=== PATIENT | male | born 1955 | race African-American/Black ===

== ENCOUNTER 2019-06-27 08:27 | Inpatient (IN) | payer OTHER ==
--- NOTE | 2019-06-27 08:47 | BHS.RME ---
Substance Use & Tx History - Substance Use History Opiates (Heroin) Substance amount: 6 bags Frequency of use: Daily Substance route: Inhalation (ex: sniffing or snorting) Date of Last Use: 06/26/19 Cocaine (Powder) Substance amount: 6 bags Frequency of use: Daily Substance route: Inhalation (ex: sniffing or snorting) Date of Last Use: 06/26/19 Physical/Psych/Mental Status - Behavior General Behavior: Increased activity (restlessness, agitation) - Cooperativeness Cooperativeness: Cooperative - Thinking Thought Processes: Tight, Logical, Goal Directed Thought content: Future oriented - Physical Health Problems Is patient presently having any pain?: No Does patient presently have any injuries (include location): No Does patient currently have a fever: No Is patient : No COWS - Scale Resting Pulse: 1= [place] 81-100 Sweatin= No chills or Flushing Restless Observation: 3= Extraneous Movement Pupil Size: 1= Pupils >than Normal Bone or Joint Aches: 2= Severe Diffuse Aches Runny Nose/ Eye Tearin= Nasal Congestion GI Upset > 30mins: 1= Stomach Cramp Tremor Observation: 1= Tremor [place], Not Seen Yawning Observation: 1= 1-2x During Session Anxiety or Irritability: 2=Irritable/Anxious Goose Flesh Skin: 0=Smooth Skin COWS Score: 13
[2019-06-27 09:22] VITALS: BMI 25.3
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
[2019-06-27] MEDS ORDERED: MENTHOL/PHENOL 1 EACH UD MM PRN (09:57)
[2019-06-27] MEDS ORDERED: MAGNESIUM CITRATE 300 ML BOTTLE PO PRN (09:57)
[2019-06-27] MEDS ORDERED: METHOCARBAMOL 500 MG TABLET PO PRN (09:57)
[2019-06-27] MEDS ORDERED: MAG HYDROX/AL HYDROX/SIMETH 30 ML UNIT-DOSE CUP PO PRN (09:57)
[2019-06-27] MEDS ORDERED: IBUPROFEN 400 MG TABLET (FP) PO PRN (09:57)
[2019-06-27] MEDS ORDERED: ACETAMINOPHEN 325 MG TABLET (FP) PO PRN ×2 (09:57)
[2019-06-27] MEDS ORDERED: MAGNESIUM HYDROX 2400MG/30ML ORAL SUSPENSION 30 ML CUP PO PRN (09:57)
[2019-06-27] MEDS ORDERED: NICOTINE POLACRILEX 2 MG GUM BUC PRN (09:57)
[2019-06-27] MEDS ORDERED: cloNIDine HCL 0.1 MG TABLET PO PRN (09:57)
[2019-06-27] MEDS ORDERED: METHADONE HCL 10 MG TABLET (FOR DETOX USE ONLY) PO ONE (10:30)
[2019-06-27] MEDS ORDERED: ONDANSETRON *ODT* 4 MG TABLET SL ONE (10:30)
[2019-06-27] MEDS: hydrOXYzine PAMOATE 25 MG CAPSULE (FP) PO SCH ×4 (11:06→22:23)
[2019-06-27] MEDS: PRENATAL VITAMINS W/ FOLIC ACID TABLET (FP) PO SCH (11:07)
[2019-06-27] MEDS: NICOTINE 7 MG/24 HOURS TOPICAL PATCH TD SCH (11:10)
[2019-06-27] MEDS ORDERED: BISMUTH SUBSALICYLATE 262 MG/15 ML BTL PO PRN (12:39)
[2019-06-27 15:27] LABS: HEMATOCRIT 36.4 % (35.4-49); HEMOGLOBIN 12.1 GM/dL (11.7-16.9); MCH 29.8 pg (25.7-33.7); MCHC 33.1 g/dl (32.0-35.9); MEAN PLT VOLUME 8.2 fl (7.5-11.1); PLATELET COUNT 313 K/MM3 (134-434); RBC 4.05 M/mm3 (4.00-5.60); RDW 14.3 % (11.9-15.9); WHITE BLOOD COUNT 7.4 K/mm3 (4.0-10.0)
[2019-06-27 15:55] LABS: ALBUMIN 3.8 g/dl (3.4-5.0); BILIRUBIN,TOTAL 0.3 mg/dL (0.2-1); BLOOD UREA NITROGEN 15.5 mg/dL (7-18); CALCIUM 9.2 mg/dL (8.5-10.1); POTASSIUM 4.4 mmol/L (3.5-5.1); TOT PROT 7.8 g/dl (6.4-8.2)
[2019-06-27] MEDS: MELATONIN 5 MG TABLETS PO SCH (22:23)
[2019-06-27] MEDS: THIAMINE HCL 100 MG TABLET (FP) PO SCH (22:23)
[2019-06-28] MEDS: hydrOXYzine PAMOATE 25 MG CAPSULE (FP) PO SCH ×5 (06:44→22:16)
[2019-06-28] MEDS ORDERED: METHADONE HCL 5 MG TABLET (FOR DETOX USE ONLY) ONE (09:42)
[2019-06-28] MEDS ORDERED: METHADONE HCL 10 MG TABLET (FOR DETOX USE ONLY) ONE (09:42)
[2019-06-28] MEDS ORDERED: METHADONE (DETOX) 20 MG, METHADONE (DETOX) 5 MG PO ONE (10:00)
[2019-06-28] MEDS: PRENATAL VITAMINS W/ FOLIC ACID TABLET (FP) PO SCH (10:53)
[2019-06-28] MEDS: NICOTINE 7 MG/24 HOURS TOPICAL PATCH TD SCH (10:55)
--- NOTE | 2019-06-28 11:08 | PN ---
S COWS - Scale Resting Pulse: 0= [place] 80 or Below Sweatin= No chills or Flushing Restless Observation: 1= Difficult to Sit Still Pupil Size: 1= Pupils >than Normal Bone or Joint Aches: 1= Mild Discomfort Runny Nose/ Eye Tearin= Nasal Congestion GI Upset > 30mins: 1= Stomach Cramp Tremor Observation of Outstretched Hands: 1= Tremor [place], Not Seen Yawning Observation: 1= 1-2x During Session Anxiety or Irritability: 2=Irritable/Anxious Goose Flesh Skin: 0=Smooth Skin COWS Score: 9 S Progress Note (SOAP) Subjective: alert,irritable,anxious,interrupted sleep,pain in the body and back,nausea Objective: 06/28/19 11:06 Vital Signs Temperature 97.5 F L 06/28/19 08:30 Pulse Rate 58 L 06/28/19 08:30 Respiratory Rate 18 06/28/19 08:30 Blood Pressure 154/85 06/28/19 08:30 O2 Sat by Pulse Oximetry (%) 06/28/19 11:06 Laboratory Last Values WBC 7.4 K/mm3 (4.0-10.0) 06/27/19 10:20 RBC 4.05 M/mm3 (4.00-5.60) 06/27/19 10:20 Hgb 12.1 GM/dL (11.7-16.9) 06/27/19 10:20 Hct 36.4 % (35.4-49) 06/27/19 10:20 MCV 90.0 fl (80-96) 06/27/19 10:20 MCH 29.8 pg (25.7-33.7) 06/27/19 10:20 MCHC 33.1 g/dl (32.0-35.9) 06/27/19 10:20 RDW 14.3 % (11.9-15.9) 06/27/19 10:20 Plt Count 313 K/MM3 (134-434) 06/27/19 10:20 MPV 8.2 fl (7.5-11.1) 06/27/19 10:20 Sodium 140 mmol/L (136-145) 06/27/19 10:20 Potassium 4.4 mmol/L (3.5-5.1) 06/27/19 10:20 Chloride 102 mmol/L (98-107) 06/27/19 10:20 Carbon Dioxide 34 mmol/L (21-32) H 06/27/19 10:20 Anion Gap 4 MMOL/L (8-16) L 06/27/19 10:20 BUN 15.5 mg/dL (7-18) 06/27/19 10:20 Creatinine 1.0 mg/dL (0.55-1.3) 06/27/19 10:20 Est GFR (CKD-EPI)AfAm 93.08 06/27/19 10:20 Est GFR (CKD-EPI)NonAf 80.31 06/27/19 10:20 Random Glucose 70 mg/dL (74-106) L 06/27/19 10:20 Calcium 9.2 mg/dL (8.5-10.1) 06/27/19 10:20 Total Bilirubin 0.3 mg/dL (0.2-1) 06/27/19 10:20 AST 22 U/L (15-37) 06/27/19 10:20 ALT 22 U/L (13-61) 06/27/19 10:20 Alkaline Phosphatase 85 U/L (45-117) 06/27/19 10:20 Total Protein 7.8 g/dl (6.4-8.2) 06/27/19 10:20 Albumin 3.8 g/dl (3.4-5.0) 06/27/19 10:20 RPR Titer Nonreactive (NONREACTIVE) 06/27/19 10:20 Assessment: 06/28/19 11:07 withdrawal symptom Plan: continue detox methadone regimen
[2019-06-28] MEDS: THIAMINE HCL 100 MG TABLET (FP) PO SCH (22:15)
[2019-06-28] MEDS: MELATONIN 5 MG TABLETS PO SCH (22:16)
[2019-06-29] MEDS: hydrOXYzine PAMOATE 25 MG CAPSULE (FP) PO SCH ×5 (06:48→22:23)
[2019-06-29] MEDS ORDERED: METHADONE HCL 10 MG TABLET (FOR DETOX USE ONLY) PO ONE (10:00)
[2019-06-29] MEDS: PRENATAL VITAMINS W/ FOLIC ACID TABLET (FP) PO SCH (10:11)
[2019-06-29] MEDS: NICOTINE 7 MG/24 HOURS TOPICAL PATCH TD SCH (10:11)
--- NOTE | 2019-06-29 11:52 | PN ---
BHS COWS - Scale Resting Pulse: 0= [place] 80 or Below Sweatin= Chills/Flushing Restless Observation: 1= Difficult to Sit Still Pupil Size: 0= Normal to Room Light Bone or Joint Aches: 1= Mild Discomfort Runny Nose/ Eye Tearin= None GI Upset > 30mins: 0= None Tremor Observation of Outstretched Hands: 0= None Yawning Observation: 1= 1-2x During Session Anxiety or Irritability: 1=Feels Anxious/Irritable Goose Flesh Skin: 0=Smooth Skin COWS Score: 5 BHS Progress Note (SOAP) Subjective: agitation irritable sweats Objective: 06/29/19 11:51 Vital Signs Temperature 97.5 F L 06/29/19 08:45 Pulse Rate 63 06/29/19 08:45 Respiratory Rate 16 06/29/19 08:45 Blood Pressure 139/75 06/29/19 08:45 O2 Sat by Pulse Oximetry (%) Laboratory Tests 06/27/19 06/27/19 06/27/19 10:20 10:20 10:20 WBC 7.4 RBC 4.05 Hgb 12.1 Hct 36.4 MCV 90.0 MCH 29.8 MCHC 33.1 RDW 14.3 Plt Count 313 MPV 8.2 Sodium 140 Potassium 4.4 Chloride 102 Carbon Dioxide 34 H Anion Gap 4 L BUN 15.5 Creatinine 1.0 Est GFR (CKD-EPI)AfAm 93.08 Est GFR (CKD-EPI)NonAf 80.31 Random Glucose 70 L Calcium 9.2 Total Bilirubin 0.3 AST 22 ALT 22 Alkaline Phosphatase 85 Total Protein 7.8 Albumin 3.8 RPR Titer Nonreactive aaox3 ambulating no acute distress Assessment: 06/29/19 11:51 mild withdrawals Plan: continue detox
[2019-06-29] MEDS: THIAMINE HCL 100 MG TABLET (FP) PO SCH (22:22)
[2019-06-29] MEDS: MELATONIN 5 MG TABLETS PO SCH (22:23)
[2019-06-30] MEDS: hydrOXYzine PAMOATE 25 MG CAPSULE (FP) PO SCH ×4 (06:25→22:40)
[2019-06-30] MEDS ORDERED: METHADONE HCL 5 MG TABLET (FOR DETOX USE ONLY) ONE (09:48)
[2019-06-30] MEDS ORDERED: METHADONE HCL 10 MG TABLET (FOR DETOX USE ONLY) ONE (09:49)
[2019-06-30] MEDS ORDERED: METHADONE (DETOX) 10 MG, METHADONE (DETOX) 5 MG PO ONE (10:00)
--- NOTE | 2019-06-30 10:21 | PN ---
S COWS - Scale Resting Pulse: 0= [place] 80 or Below Sweatin= No chills or Flushing Restless Observation: 1= Difficult to Sit Still Pupil Size: 1= Pupils >than Normal Bone or Joint Aches: 1= Mild Discomfort Runny Nose/ Eye Tearin= Nasal Congestion GI Upset > 30mins: 1= Stomach Cramp Tremor Observation of Outstretched Hands: 1= Tremor [place], Not Seen Yawning Observation: 1= 1-2x During Session Anxiety or Irritability: 2=Irritable/Anxious Goose Flesh Skin: 0=Smooth Skin COWS Score: 9 S Progress Note (SOAP) Subjective: alert,irritable,anxious,interrupted sleep,pain in the body,aching pain Objective: 06/30/19 10:20 Vital Signs Temperature 98.0 F 06/30/19 05:30 Pulse Rate 56 L 06/30/19 05:30 Respiratory Rate 18 06/30/19 05:30 Blood Pressure 134/72 06/30/19 05:30 O2 Sat by Pulse Oximetry (%) 06/30/19 10:20 Laboratory Last Values WBC 7.4 K/mm3 (4.0-10.0) 06/27/19 10:20 RBC 4.05 M/mm3 (4.00-5.60) 06/27/19 10:20 Hgb 12.1 GM/dL (11.7-16.9) 06/27/19 10:20 Hct 36.4 % (35.4-49) 06/27/19 10:20 MCV 90.0 fl (80-96) 06/27/19 10:20 MCH 29.8 pg (25.7-33.7) 06/27/19 10:20 MCHC 33.1 g/dl (32.0-35.9) 06/27/19 10:20 RDW 14.3 % (11.9-15.9) 06/27/19 10:20 Plt Count 313 K/MM3 (134-434) 06/27/19 10:20 MPV 8.2 fl (7.5-11.1) 06/27/19 10:20 Sodium 140 mmol/L (136-145) 06/27/19 10:20 Potassium 4.4 mmol/L (3.5-5.1) 06/27/19 10:20 Chloride 102 mmol/L (98-107) 06/27/19 10:20 Carbon Dioxide 34 mmol/L (21-32) H 06/27/19 10:20 Anion Gap 4 MMOL/L (8-16) L 06/27/19 10:20 BUN 15.5 mg/dL (7-18) 06/27/19 10:20 Creatinine 1.0 mg/dL (0.55-1.3) 06/27/19 10:20 Est GFR (CKD-EPI)AfAm 93.08 06/27/19 10:20 Est GFR (CKD-EPI)NonAf 80.31 06/27/19 10:20 Random Glucose 70 mg/dL (74-106) L 06/27/19 10:20 Calcium 9.2 mg/dL (8.5-10.1) 06/27/19 10:20 Total Bilirubin 0.3 mg/dL (0.2-1) 06/27/19 10:20 AST 22 U/L (15-37) 06/27/19 10:20 ALT 22 U/L (13-61) 06/27/19 10:20 Alkaline Phosphatase 85 U/L (45-117) 06/27/19 10:20 Total Protein 7.8 g/dl (6.4-8.2) 06/27/19 10:20 Albumin 3.8 g/dl (3.4-5.0) 06/27/19 10:20 RPR Titer Nonreactive (NONREACTIVE) 06/27/19 10:20 Assessment: 06/30/19 10:20 withdrawal symptom Plan: continue detox methadone regimen
[2019-06-30] MEDS: PRENATAL VITAMINS W/ FOLIC ACID TABLET (FP) PO SCH (10:59)
[2019-06-30] MEDS: NICOTINE 7 MG/24 HOURS TOPICAL PATCH TD SCH (11:00)
[2019-06-30] MEDS: THIAMINE HCL 100 MG TABLET (FP) PO SCH (22:31)
[2019-06-30] MEDS: MELATONIN 5 MG TABLETS PO SCH (22:32)
[2019-07-01] MEDS ORDERED: METHADONE HCL 10 MG TABLET (FOR DETOX USE ONLY) PO ONE (10:00)
[2019-07-01] MEDS: PRENATAL VITAMINS W/ FOLIC ACID TABLET (FP) PO SCH (11:02)
[2019-07-01] MEDS: hydrOXYzine PAMOATE 25 MG CAPSULE (FP) PO SCH ×4 (11:03→22:15)
--- NOTE | 2019-07-01 11:03 | PN ---
[facility] CIWA - CIWA Score Nausea/Vomitin-Mild Nausea/No Vomiting Muscle Tremors: 1-None Visible, but [place] Anxiety: 2 Agitation: 2 Paroxysmal Sweats: No Perspiration Orientation: 0-Oriented Tacttile Disturbances: 1-Very Mild Itch/Numbness Auditory Disturbances: 0-None Visual Disturbances: 0-None Headache: 1-Very Mild CIWA-Ar Total Score: 8 BHS Progress Note (SOAP) Subjective: alert,irritable,anxious,interrupted sleep, Objective: 07/01/19 11:01 Vital Signs Temperature 98.2 F 07/01/19 08:45 Pulse Rate 70 07/01/19 08:45 Respiratory Rate 19 07/01/19 08:45 Blood Pressure 122/68 07/01/19 08:45 O2 Sat by Pulse Oximetry (%) Assessment: 07/01/19 11:02 withdrawalsymptom Plan: continue detox librium regimen,discharge in am
[2019-07-01] MEDS: NICOTINE 7 MG/24 HOURS TOPICAL PATCH TD SCH (15:16)
[2019-07-01] MEDS: THIAMINE HCL 100 MG TABLET (FP) PO SCH (22:15)
[2019-07-01] MEDS: MELATONIN 5 MG TABLETS PO SCH (22:16)
[2019-07-02] MEDS ORDERED: METHADONE HCL 5 MG TABLET (FOR DETOX USE ONLY) PO ONE (06:00)
[2019-07-02] MEDS: hydrOXYzine PAMOATE 25 MG CAPSULE (FP) PO SCH (06:16)
[2019-07-02 06:44] VITALS: BP 131/79; PULSE 63; TEMP 97.4
--- NOTE | 2019-07-02 08:23 | DS ---
[facility] Detox Discharge Summary Admission Date: 06/27/19 Discharge Date: 07/02/19 - History Present History: Cocaine Dependence, Opioid Dependence - Physical Exam Results Vital Signs: Vital Signs Temperature 97.4 F L 07/02/19 05:25 Pulse Rate 63 07/02/19 05:25 Respiratory Rate 18 07/02/19 05:25 Blood Pressure 131/79 07/02/19 05:25 O2 Sat by Pulse Oximetry (%) Pertinent Admission Physical Exam Findings: Vital Signs Temperature 97.4 F L 07/02/19 05:25 Pulse Rate 63 07/02/19 05:25 Respiratory Rate 18 07/02/19 05:25 Blood Pressure 131/79 07/02/19 05:25 O2 Sat by Pulse Oximetry (%) Laboratory Tests 06/27/19 06/27/19 06/27/19 10:20 10:20 10:20 WBC 7.4 RBC 4.05 Hgb 12.1 Hct 36.4 MCV 90.0 MCH 29.8 MCHC 33.1 RDW 14.3 Plt Count 313 MPV 8.2 Sodium 140 Potassium 4.4 Chloride 102 Carbon Dioxide 34 H Anion Gap 4 L BUN 15.5 Creatinine 1.0 Est GFR (CKD-EPI)AfAm 93.08 Est GFR (CKD-EPI)NonAf 80.31 Random Glucose 70 L Calcium 9.2 Total Bilirubin 0.3 AST 22 ALT 22 Alkaline Phosphatase 85 Total Protein 7.8 Albumin 3.8 RPR Titer Nonreactive T.pallidum Ab Interpret 06/27/19 10:20 WBC RBC Hgb Hct MCV MCH MCHC RDW Plt Count MPV Sodium Potassium Chloride Carbon Dioxide Anion Gap BUN Creatinine Est GFR (CKD-EPI)AfAm Est GFR (CKD-EPI)NonAf Random Glucose Calcium Total Bilirubin AST ALT Alkaline Phosphatase Total Protein Albumin RPR Titer T.pallidum Ab Interpret Cancelled aaox3 ambulating no acute distress lungs CTA - Treatment Hospital Course: Detox Protocol Followed, Detoxed Safely, Responded well, Discharged Condition Good, Rehab Referral Accepted - Medication Discharge Medications: Ambulatory Orders NK [No Known Home Medication] 06/27/19 - Diagnosis (1) Opioid dependence with withdrawal Current Visit: Yes Status: Acute (2) Cocaine dependence Current Visit: Yes Status: Chronic Qualifiers: Substance use status: uncomplicated Qualified Code(s): F14.20 - Cocaine dependence, uncomplicated (3) Opioid dependence, uncomplicated Current Visit: Yes Status: Chronic - AMA Did Patient Leave Against Medical Advice: No
== END 2019-07-02 09:08 | disposition home or self-care (01) | DRG 897 ==
LOC: YASAS 08:27 → Y6N 09:59
PROVIDERS: ADMIT Allergy & Immunology; ATTEND Allergy & Immunology
PROC: HZ2ZZZZ Detoxification Services for Substance Abuse Treatment (ICD-10-PCS; principal; 2019-06-27)
DX: F11.23 Opioid dependence with withdrawal (principal); F14.20 Cocaine dependence, uncomplicated; Z87.891 Personal history of nicotine dependence
CPT/HCPCS: 36415; 80053; 85027; 86593

== ENCOUNTER 2020-07-01 06:34 | Inpatient (IN) | payer OTHER ==
[2020-07-01 07:39] VITALS: BMI 28.2
[2020-07-01] MEDS ORDERED: ACETAMINOPHEN 325 MG TABLET (FP) PO PRN ×2 (09:57)
[2020-07-01] MEDS ORDERED: METHADONE HCL 10 MG TABLET (FOR DETOX USE ONLY) PO ONE (09:57)
[2020-07-01] MEDS ORDERED: MAGNESIUM CITRATE 300 ML BOTTLE PO PRN (09:57)
[2020-07-01] MEDS ORDERED: ONDANSETRON *ODT* 4 MG TABLET SL PRN (09:57)
[2020-07-01] MEDS ORDERED: BISMUTH SUBSALICYLATE 262 MG/15 ML BTL PO PRN (09:57)
[2020-07-01] MEDS ORDERED: MAGNESIUM HYDROX 2400MG/30ML ORAL SUSPENSION 30 ML CUP PO PRN (09:57)
[2020-07-01] MEDS ORDERED: MAG HYDROX/AL HYDROX/SIMETH 30 ML UNIT-DOSE CUP PO PRN (09:57)
[2020-07-01] MEDS ORDERED: MENTHOL/PHENOL 1 EACH UD MM PRN (09:57)
[2020-07-01] MEDS: PRENATAL VITAMINS W/ FOLIC ACID TABLET (FP) PO SCH (12:29)
[2020-07-01] MEDS: hydrOXYzine PAMOATE 25 MG CAPSULE (FP) PO SCH ×4 (12:29→22:30)
[2020-07-01] MEDS ORDERED: MASKS NR ONE (12:29)
[2020-07-01] MEDS: cloNIDine HCL 0.1 MG TABLET PO PRN (12:57)
[2020-07-01 14:42] LABS: HEMATOCRIT 34.3 % (35.4-49); HEMOGLOBIN 11.4 GM/dL (11.7-16.9); MCH 29.3 pg (25.7-33.7); MCHC 33.3 g/dl (32.0-35.9); MEAN CELL VOLUME 87.9 fl (80-96); MEAN PLT VOLUME 8.2 fl (7.5-11.1); PLATELET COUNT 252 K/MM3 (134-434); RBC 3.91 M/mm3 (4.00-5.60); RDW 15.1 % (11.9-15.9); WHITE BLOOD COUNT 7.7 K/mm3 (4.0-10.0)
[2020-07-01 15:31] LABS: POTASSIUM 3.8 mmol/L (3.5-5.1)
[2020-07-01 15:33] LABS: CALCIUM 9.2 mg/dL (8.5-10.1)
[2020-07-01 15:34] LABS: ALBUMIN 3.7 g/dl (3.4-5.0); BLOOD UREA NITROGEN 12.6 mg/dL (7-18)
[2020-07-01 15:38] LABS: BILIRUBIN,TOTAL 0.4 mg/dL (0.2-1); TOT PROT 7.6 g/dl (6.4-8.2)
[2020-07-01] MEDS: THIAMINE HCL 100 MG TABLET (FP) PO SCH (22:22)
[2020-07-01] MEDS: MELATONIN 5 MG TABLETS PO SCH (22:22)
[2020-07-02] MEDS: hydrOXYzine PAMOATE 25 MG CAPSULE (FP) PO SCH ×2 (05:38→10:29)
[2020-07-02] MEDS ORDERED: METHADONE HCL 5 MG TABLET (FOR DETOX USE ONLY) ONE (09:20)
[2020-07-02] MEDS ORDERED: METHADONE HCL 10 MG TABLET (FOR DETOX USE ONLY) ONE (09:20)
[2020-07-02] MEDS ORDERED: METHADONE (DETOX) 20 MG, METHADONE (DETOX) 5 MG PO ONE (10:00)
[2020-07-02] MEDS: METHOCARBAMOL 500 MG TABLET PO PRN ×2 (10:29→22:36)
[2020-07-02] MEDS: PRENATAL VITAMINS W/ FOLIC ACID TABLET (FP) PO SCH (10:29)
[2020-07-02] MEDS: IBUPROFEN 400 MG TABLET (FP) PO PRN ×2 (10:31→22:36)
[2020-07-02] MEDS ORDERED: hydrOXYzine PAMOATE 25 MG CAPSULE (FP) PO PRN (12:32)
[2020-07-02] MEDS: LIDOCAINE 5% TOPICAL PATCH TP SCH (13:53)
[2020-07-02] MEDS: THIAMINE HCL 100 MG TABLET (FP) PO SCH (22:38)
[2020-07-02] MEDS: MELATONIN 5 MG TABLETS PO SCH (22:38)
[2020-07-02] MEDS: LIDOCAINE PATCH REMOVAL MC SCH (22:39)
[2020-07-03] MEDS ORDERED: METHADONE HCL 10 MG TABLET (FOR DETOX USE ONLY) PO ONE (10:00)
[2020-07-03] MEDS: PRENATAL VITAMINS W/ FOLIC ACID TABLET (FP) PO SCH (10:20)
[2020-07-03] MEDS: LIDOCAINE 5% TOPICAL PATCH TP SCH (10:21)
[2020-07-03] MEDS: METHOCARBAMOL 500 MG TABLET PO PRN ×2 (10:21→22:11)
[2020-07-03] MEDS: IBUPROFEN 400 MG TABLET (FP) PO PRN ×2 (10:23→22:11)
[2020-07-03] MEDS: LIDOCAINE PATCH REMOVAL MC SCH (22:08)
[2020-07-03] MEDS: cloNIDine HCL 0.1 MG TABLET PO PRN (22:09)
[2020-07-03] MEDS: THIAMINE HCL 100 MG TABLET (FP) PO SCH (22:09)
[2020-07-03] MEDS: MELATONIN 5 MG TABLETS PO SCH (22:09)
[2020-07-04] MEDS ORDERED: METHADONE HCL 10 MG TABLET (FOR DETOX USE ONLY) ONE (09:16)
[2020-07-04] MEDS ORDERED: METHADONE HCL 5 MG TABLET (FOR DETOX USE ONLY) ONE (09:17)
[2020-07-04] MEDS ORDERED: METHADONE (DETOX) 10 MG, METHADONE (DETOX) 5 MG PO ONE (10:00)
[2020-07-04] MEDS: LIDOCAINE 5% TOPICAL PATCH TP SCH (10:32)
[2020-07-04] MEDS: PRENATAL VITAMINS W/ FOLIC ACID TABLET (FP) PO SCH (10:33)
[2020-07-04] MEDS: IBUPROFEN 400 MG TABLET (FP) PO PRN ×2 (10:34→22:07)
[2020-07-04] MEDS: METHOCARBAMOL 500 MG TABLET PO PRN ×2 (10:34→22:07)
[2020-07-04] MEDS: LIDOCAINE PATCH REMOVAL MC SCH (22:04)
[2020-07-04] MEDS: THIAMINE HCL 100 MG TABLET (FP) PO SCH (22:05)
[2020-07-04] MEDS: MELATONIN 5 MG TABLETS PO SCH (22:05)
[2020-07-05] MEDS ORDERED: METHADONE HCL 10 MG TABLET (FOR DETOX USE ONLY) PO ONE (10:00)
[2020-07-05] MEDS: PRENATAL VITAMINS W/ FOLIC ACID TABLET (FP) PO SCH (10:18)
[2020-07-05] MEDS: LIDOCAINE 5% TOPICAL PATCH TP SCH (10:18)
[2020-07-05] MEDS: IBUPROFEN 400 MG TABLET (FP) PO PRN (10:19)
[2020-07-05] MEDS: METHOCARBAMOL 500 MG TABLET PO PRN (10:19)
[2020-07-05] MEDS ORDERED: cloNIDine HCL 0.1 MG TABLET PO ONE (15:52)
[2020-07-05 17:59] VITALS: BP 159/97; PULSE 76; TEMP 96.8
[2020-07-06] MEDS ORDERED: METHADONE HCL 5 MG TABLET (FOR DETOX USE ONLY) PO ONE (06:00)
== END 2020-07-05 17:04 | disposition home or self-care (01) | DRG 897 ==
LOC: YASAS 06:34 → Y3N 11:21
PROVIDERS: ADMIT Allergy & Immunology; ATTEND Allergy & Immunology
PROC: HZ2ZZZZ Detoxification Services for Substance Abuse Treatment (ICD-10-PCS; principal; 2020-07-01)
DX: F11.23 Opioid dependence with withdrawal (principal); F14.20 Cocaine dependence, uncomplicated; H54.61 Unqualified visual loss, right eye, normal vision left eye; R21 Rash and other nonspecific skin eruption; M25.512 Pain in left shoulder; G89.29 Other chronic pain; Z87.891 Personal history of nicotine dependence; Z87.828 Personal history of other (healed) physical injury and trauma
CPT/HCPCS: 36415; 80053; 85027; 86780; 93005; 93010; C9803; J0735; U0003